=== PATIENT | male | born 1990 | race Caucasian/White ===

== ENCOUNTER 2022-11-25 09:10 | Emergency (ER) | payer BC ==
[~2022-11-25] VITALS: Ht 172.7 cm; Wt 97.5 kg
[2022-11-25] MEDS ORDERED: LEVOTHYROXINE150 MCG PO (09:26)
[2022-11-25] MEDS ORDERED: MELOXICAM15 MG PO (10:35)
== END 2022-11-25 11:03 | disposition home or self-care (01) ==
LOC: ED 09:10
DX: S93.401A Sprain of unspecified ligament of right ankle, initial encounter (principal); Z91.040 Latex allergy status; W17.89XA Other fall from one level to another, initial encounter; Y93.67 Activity, basketball; Y92.39 Other specified sports and athletic area as the place of occurrence of the external cause; Y99.8 Other external cause status